=== PATIENT | female | born 1960 | race Caucasian/White ===

== ENCOUNTER 2023-03-19 07:55 | Day surgery (SDC) | payer OTHER, MEDICAID ==
[~2023-03-19] VITALS: Ht 149.9 cm; Wt 44.5 kg
[2023-03-19] VITALS (10 sets, daily range): BP systolic 94–136; BP diastolic 56–76; PULSE 55–71; TEMP 98.1
[2023-03-19] MEDS ORDERED: 1/2 NS 1,000 ML IV SCH ×3 (08:15→12:15)
[2023-03-19] MEDS ORDERED: ALDACTONE 25MG25 M1 PO (08:43)
[2023-03-19] MEDS ORDERED: TOPROL XL 25MG25 MG (08:44)
[2023-03-19] MEDS ORDERED: TOPROL XL 25MG25 MG PO (08:44)
[2023-03-19] MEDS ORDERED: PROAMATINE2.5 MG PO (08:44)
[2023-03-19] MEDS ORDERED: ELIQUIS 5MG PO (08:45)
[2023-03-19] MEDS ORDERED: CARDIZEM CD 12120 MG PO (08:46)
[2023-03-19] MEDS ORDERED: ASPIRIN 81M81 MG/TA2 PO (08:46)
[2023-03-19 08:49] LABS: HEMATOCRIT 39.5 % (37.0-47.0); HEMOGLOBIN 12.8 g/dl (12.5-16.0); MEAN CELL VOLUME 87 fl (80.0-100.0); MEAN CORPUSCULAR HEMOGLOBIN 28 pg (27-31); MEAN CORPUSCULAR HGB CONC 32 g/dl (33.0-37.0); MEAN PLATELET VOLUME 10.5 fl (7.4-10.4); PLATELET COUNT 231 K/mm3 (130-400); RED BLOOD COUNT 4.52 M/mm3 (4.10-5.30); REDCELL DISTRIBUTION WIDTH-CV 14.1 % (11.5-14.5)
[2023-03-19 08:53] LABS: CALCIUM 9.2 mg/dL (8.4-10.2); CREATININE, serum 0.76 mg/dL (0.57-1.11); POTASSIUM 4.1 mmol/L (3.5-4.5)
[2023-03-19 08:56] LABS: INR 1.1 (0.8-3.0); PROTHROMBIN TIME 12.1 SECONDS (9.7-12.8)
--- NOTE | 2023-03-19 10:24 | NUR ---
PLEASE SEE MERGE FOR RECORD OF HEART CATH.
[2023-03-19] MEDS ORDERED: Heparin 1,000 UNITS/ML 10 ML Multi-Dose VIAL IV SCH (10:49)
[2023-03-19] MEDS ORDERED: fentaNYL 50 MCG/ML 2 ML VIAL IV SCH (10:50)
[2023-03-19] MEDS ORDERED: Iohexol 350 - 100 ML VIAL INCOR ONE (10:51)
[2023-03-19] MEDS ORDERED: Midazolam 2 MG/2 ML VIAL IV SCH (10:52)
[2023-03-19] MEDS ORDERED: niCARdipine (Cath Lab) 100 MCG/ML 10 ML VIAL IA SCH (10:56)
[2023-03-19] MEDS ORDERED: CORDARONE200 MG/TAB PO (13:15)
--- NOTE | 2023-03-19 14:53 | NUR ---
pt assisted to main lobby upon discharge via wheelchair. IV discontinued and pt's right radial dressing was clean dry and intact. pt remained free from signs of bleeding and hematoma. pt tolerated po food and fluids during recovery and verbalized understanding of dishcarge instructions. pt remained free from acute concerns and complaints at time of discharge.
== END 2023-03-19 14:20 | disposition home or self-care (01) ==
LOC: COL.CAR 07:55
PROVIDERS: Internal Medicine Cardiovascular Disease
DX: I42.0 Dilated cardiomyopathy (principal); I08.2 Rheumatic disorders of both aortic and tricuspid valves; I48.0 Paroxysmal atrial fibrillation; I11.0 Hypertensive heart disease with heart failure; I50.9 Heart failure, unspecified; F17.210 Nicotine dependence, cigarettes, uncomplicated; R94.39 Abnormal result of other cardiovascular function study; Z79.899 Other long term (current) drug therapy
CPT/HCPCS: C1769; J1644; J2250; J2404; J3010; Q9967